=== PATIENT | female | born 1960 | race Caucasian/White ===

== ENCOUNTER → 2018-01-08 | Outpatient (CLI) | payer OTHER ==
[~2018-01-08] MED LIST: ACE3 PO; APRE80CA PO; ASPI81TA94 PO; CA C1TAB85 PO; CEPH500C24 PO; CETI-176 PO; FISHOIL PO; GLUC100026 PO; GLUC500C29 PO; IBU600 PO; LOR1 PO; MULT1TAB54 PO; MULTIVIT PO; NAPR220C12 PO; NEXIUM PO; OXYC-489 PO; PER PO; PROC-35 PO; RANI150C17 PO; VIT-7 PO; ZYRTEC PO
[2018-01-08 13:28] LABS: PLATELET COUNT, AUTOMATED 213 K/uL (150-450)
== END ==
LOC: LAB 13:05
PROVIDERS: ATTEND Internal Medicine Hematology
DX: C50.919 Malignant neoplasm of unspecified site of unspecified female breast (principal)
CPT/HCPCS: 36415; 82040; 82247; 82310; 82374; 82378; 82435; 82565; 82947; 84075; 84132; 84155; 84295; 84450; 84460; 84520; 85025; 86300

== ENCOUNTER → 2018-01-31 | Outpatient (CLI) | payer OTHER ==
--- NOTE | 2018-02-01 13:30 | RADIOLOGY IMAGING REPORT ---
FACILITY: [facility] PATIENT NAME: COURTNEY MORGAN : [id number] MR: [id number] V: [id number] EXAM DATE: [id number] ORDERING PHYSICIAN: OLAF MILLER TECHNOLOGIST: Sylvia Jacobson PROCEDURE: MAMMOGRAM SCREENING LEFT UNILATERAL WITH CAD ASSISTED INTERPRETATION & 3D TOMOSYNTHESIS COMPARISON: Prior mammograms 05/05/16, 01/28/15. INDICATIONS: screening FINDINGS: A small amount of fibroglandular tissue is seen throughout the breasts. The parenchymal pattern has remained stable allowing for difference in mammographic technique & patient positioning. There is no evidence of malignant appearing mass, malignant appearing calcifications or other secondary sign of malignancy in the Left breast. DIAGNOSTIC CATEGORY 1--NEGATIVE. RECOMMENDATIONS: ROUTINE MAMMOGRAM AND CLINICAL EVALUATION. IMPRESSION: BIRADS 1: Negative. No significant abnormality of the Left breast is seen. Dictated by: Anna Pederson M.D. on 01/31/2018 at 16:56 Transcribed by: EMELIA on 02/01/2018 at 8:59 Approved by: Anna Pederson M.D. on 02/01/2018 at 13:28 [facility]
== END ==
LOC: MAMO 02:44
PROVIDERS: ATTEND Internal Medicine Hematology
DX: Z12.31 Encounter for screening mammogram for malignant neoplasm of breast (principal); Z80.3 Family history of malignant neoplasm of breast; Z85.3 Personal history of malignant neoplasm of breast
CPT/HCPCS: 77063; 77067

== ENCOUNTER 2018-02-02 09:58 | Outpatient (RCR) | payer OTHER ==
[2018-02-02 10:07] VITALS: BP 114/80
--- NOTE | 2018-02-02 14:54 | EL-TAR[facility] ONCOLOGY NOTE ---
EVENT DATE: February 02, 2018 DIAGNOSIS Clinical stage IIIA ([id number]) right breast cancer. CHIEF COMPLAINT The patient is here today for followup of her right breast cancer and right upper extremity lymphedema. ONCOLOGY HISTORY Patient is a 57-year-old female who presented with a palpable lump in the right breast in May 2009. On May 28, 2009, patient had a diagnostic mammogram which revealed a 2.9 cm mass at the 12 o'clock position. Followup ultrasonogram done the same day revealed a 3 cm hypoechoic mass with acoustic shadowing. 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 HER-2/rd was 2+ by immunohistochemistry and positive by FISH. Ki-67 was 88% positive. On June 17, 2009, patient had right axillary ultrasonographic-guided fine-needle aspiration biopsy which came back positive for metastasis. On June 24, 2009, patient had a PET/CT scan which showed increased activity in the large soft tissue mass of the right breast along with hypermetabolic right axillary lymph node. There was no evidence of systemic metastasis by PET/CT scan. Vitamin D level was 28 which is borderline. CA was 1.3, and CA 27.29 was 27, and both were well within normal range. Patient was started on neoadjuvant chemotherapy with AC regimen in dose dense on June 29, 2009, and patient received four courses of dose-dense AC, completed on August 13, 2009. Patient after that completed four cycles of dose-dense Taxol between August 27, 2009, through October 15, 2009. On October 29, 2009, patient had a lumpectomy on the right side with sentinel lymph node biopsy, followed by axillary lymph node dissection. Her lumpectomy specimen came back positive for invasive lobular carcinoma extending to less than 1 mm of the inferior and deep margins. There was positive lymphovascular invasion, with additional re-excision of the medial superior margin. It again came back positive for invasive cancer. Two out of five sentinel lymph nodes came back positive for metastasis, while three out of nine lymph nodes from the right axillary lymph node dissection came back positive for metastasis, so a total of five out of 14 lymph nodes were positive for metastasis, one with macrometastasis, two with micrometastasis, and two with nanometastasis. On November 12, 2009, the patient had a right mastectomy, and the pathology was negative for malignancy. Patient started adjuvant hormonal therapy with Femara 2.5 mg on February 25, 2010. The patient completed five years of adjuvant hormonal therapy with Femara in late January 2015. HISTORY OF PRESENT ILLNESS Patient is here today for followup of her right breast cancer and right upper extremity lymphedema. She is doing fine currently. She has some cough with expectoration. She has pain in her knees. She bruises easily, but other than that she is really doing very well. PAST MEDICAL HISTORY 1. Right breast cancer. 2. SEASONAL ALLERGIES. PAST SURGICAL HISTORY 1. Broken right forearm with plate in place, done on February 27, 2001. 2. Torn meniscus of the right knee. 3. Parathyroidectomy done in May 2011. 4. Right knee surgery March 2011. 5. Right lumpectomy followed by sentinel lymph node biopsy and axillary lymph node dissection done on October 29, 2009. 6. Right mastectomy done on November 12. SOCIAL HISTORY Patient is . She has four children, three sons and one daughter. She is a paraprofessional and teacher. She drinks about eight to 12 drinks per year. Denies any abuse of tobacco or drugs. FAMILY HISTORY Mother had breast cancer at the age of 56. Grandmother had breast cancer at the age of 80. No ovarian cancer in the family. She had a cousin who of cancer, but she does not know exactly the type. CURRENT MEDICATIONS 1. Zyrtec 10 mg daily. 2. Femara 2.5 mg daily. 3. Caltrate 630 mg daily. 4. Glucosamine/chondroitin sulfate two tablets daily. 5. Vitamin D 1000 mg daily. 6. Fish oil 1000 mg daily. 7. Multivitamins once daily. 8. Ranitidine 150 mg twice daily. ALLERGIES No known drug allergies. REVIEW OF SYSTEMS CONSTITUTIONAL: No appetite or weight change. No fever, chills, or sweating. No recent infection. HEENT: Ears: No tinnitus or hearing problem. Nose: No nasal discharge or epistaxis. Throat: No sore throat or mouth ulcers. Eyes: No diplopia or visual changes. RESPIRATORY: She has cough with expectoration. CARDIOVASCULAR: Her right upper quadrant lymphedema is getting better with the pump for the treatment of her lymphedema. GASTROINTESTINAL: No nausea or vomiting. No diarrhea or constipation. No change in bowel movements. No heartburn or swallowing difficulties. No abdominal pain. No jaundice. No hematemesis, melena or rectal bleeding. GENITOURINARY: No hematuria or dysuria. MUSCULOSKELETAL: She has pain in her knees. NEUROLOGICAL: No tingling or numbness in the hands or feet. No headaches or convulsions. HEMATOLOGIC/LYMPHATIC: She bruises easily. No weakness or fatigue. No enlarged lymph nodes. SKIN: No skin rash or lumps. PSYCHIATRIC: No anxiety or depression. PHYSICAL EXAMINATION VITAL SIGNS: Blood pressure 114/80, pulse 80 per minute, respirations 18 per minute, temperature 96.6, pulse ox 93% on room air. GENERAL: Looks stable. Well developed, well nourished, and in no acute distress. HEENT: Head: Atraumatic. No sinus tenderness to palpation. Eyes: No icterus or conjunctivitis. Mouth and throat: No oral thrush or mucositis. NECK: Supple. No cervical or supraclavicular lymphadenopathy. LUNGS: Clear to auscultation and percussion bilaterally. HEART: Regular rate and rhythm. No gallops, murmurs, clicks, or rubs. ABDOMEN: Soft and lax. No tenderness. No hepatosplenomegaly. No masses. EXTREMITIES: The right upper extremity lymphedema is noted, and measurements are described in diagnostic data. LYMPHATICS: No peripheral lymphadenopathy. NEUROLOGICAL: Conscious, alert, and oriented times three. No focal motor or sensory deficits. PSYCHIATRIC: Mood and affect appear normal. SKIN: No skin rash, bruise, or purpuric eruption. DIAGNOSTIC DATA Mammogram done on the January did not show any masses. Chem panel is totally normal. CBC showed white count 7.9, hemoglobin 12.3, hematocrit 35.9, platelets 213,000. CA15-3 is 15 which is down from 22. CA 27.29 is 13 which is down from 23.8. CEA is 2.3, down from 3. ASSESSMENT 1. Stage IIIA ([id number]) right breast cancer, status post neoadjuvant chemotherapy with four cycles of Adriamycin and cisplatin in dose dense given between June 29, 2009, through August 13, 2009, followed by Herceptin and Taxol dose dense received between August 27, 2009, through October 15, 2009. After that, patient had surgery with lumpectomy on October 31, 2009, followed by mastectomy on November 12, 2009, for residual disease. Final pathology was positive for ER/NY and HER-2/rd-positive breast cancer with five out of 14 lymph nodes positive for metastasis. Following surgery, patient received adjuvant radiation therapy, and she started adjuvant hormonal therapy on February 25, 2010. She completed five years of adjuvant hormonal therapy with Femara in late January 2015. She finished her adjuvant Herceptin therapy for a year in August 2010. She currently in complete remission. Her mammogram of the left breast is benign. Tumor markers with CA15-3 is 15, and CA 27.29 is 13, while CEA is 2.8, all within the normal range. I am planning to continue followup. I will see her again in a year with CBC, chemistry panel, CA 27.29, CA15-3, CEA, and a mammogram of the left breast at that time. 2. Right upper extremity lymphedema, stable currently. 3. Osteopenia of the lumbar spine, improved with Boniva. PLAN 1. Continue followup. 2. Patient to return in a year with CBC, chem panel, CEA, CA 27.29, CA15-3. 3. Patient is to contact us for any new concern or complaints. MILESD
== END 2018-03-14 08:51 | disposition home or self-care (01) ==
LOC: ONC 09:58
PROVIDERS: ATTEND Internal Medicine Hematology
DX: Z85.3 Personal history of malignant neoplasm of breast (principal); I89.0 Lymphedema, not elsewhere classified; M85.88 Other specified disorders of bone density and structure, other site; Z79.899 Other long term (current) drug therapy
CPT/HCPCS: 99212

== ENCOUNTER 2018-08-27 02:17 | Inpatient (IN) | payer OTHER ==
--- NOTE | 2018-07-31 08:25 | EKG ---
FACILITY: [facility] PATIENT NAME: COURTNEY MORGAN : [id number] MR: [id number] V: [id number] EXAM DATE: ORDERING PHYSICIAN: AVI AHMADI TECHNOLOGIST: KAREN Gallegos Reason : PRE-OP KNEE Blood Pressure : / mmHG Vent. Rate : 062 BPM Atrial Rate : 062 BPM P-R Int : 162 ms QRS Dur : 082 ms QT Int : 426 ms P-R-T Axes : 068 018 067 degrees QTc Int : 432 ms Normal sinus rhythm Low voltage QRS Borderline ECG No previous ECGs available Confirmed by Krishna Perez ([id number]) on 07/31/2018 9:43:38 PM Referred By: DAIANA Confirmed By:Krishna Sofia
[2018-07-31 08:27] LABS: PLATELET COUNT, AUTOMATED 240 K/uL (150-450)
[2018-08-26 15:26] LABS: INR 0.93
[~2018-08-27] VITALS: Ht 165.1 cm; Wt 99.4 kg
[2018-08-27] VITALS (14 sets, daily range): BP systolic 100–123; BP diastolic 41–81
[2018-08-27] MEDS ORDERED: MIDAZOLAM 2 MG/2 ML VIAL IVP PRN (08:55)
[2018-08-27] MEDS ORDERED: ROPIVACAINE/EPI/CLONIDINE/KET 50 ML SYRINGE INJ ONE (08:55)
[2018-08-27] MEDS ORDERED: ceFAZolin(*) 2GM/D5W 50ML 50 ML IVPB ONE (08:55)
[2018-08-27] MEDS ORDERED: TRANEXAMIC AC 1000 MG/10ML SDV 1,000 MG in DEXTROSE 5% 50 ML BAG 50 ML IV ONE (08:55)
[2018-08-27] MEDS ORDERED: CELECOXIB 200 MG CAP PO ONE (08:55)
[2018-08-27] MEDS ORDERED: ROPIVACAINE 0.2% 400 MG/200ML 250 ML CONINFUS ONE (08:55)
[2018-08-27] MEDS ORDERED: NORMOSOL R SOLN(*) 1000 ML BAG 1,000 ML IV PRN ×2 (08:55→15:30)
[2018-08-27] MEDS ORDERED: PREGABALIN 150 MG CAPSULE PO ONE (08:55)
[2018-08-27] MEDS ORDERED: ACETAMINOPHEN 500 MG TAB PO ONE (08:55)
[2018-08-27] MEDS ORDERED: LIDOCAINE/SOD BICARB 8.4% SYR ID ONE (08:55)
[2018-08-27] MEDS ORDERED: ROPIVACAINE 0.5% 20 ML VIAL ONE (10:03)
[2018-08-27] MEDS ORDERED: DEXAMETHASONE SOD PHOS 10MG/ML ONE (10:04)
[2018-08-27] MEDS ORDERED: DEXAMETHASONE SOD 4 MG/ML VIAL ONE (10:09)
[2018-08-27] MEDS ORDERED: fentaNYL CITR 250 MCG/5 ML AMP ONE (10:10)
[2018-08-27] MEDS ORDERED: PROPOFOL EMUL(*) 10MG/ML 20 ML 20 ML ONE (10:11)
[2018-08-27] MEDS ORDERED: LIDOCAINE 2% IV 100 MG/5ML SYR ONE (10:11)
[2018-08-27] MEDS ORDERED: KETAMINE HCL 200 MG/20 ML MDV ONE ×2 (12:39→12:58)
[2018-08-27] MEDS ORDERED: ONDANSETRON 4 MG/2 ML VIAL ONE (12:39)
[2018-08-27] MEDS ORDERED: fentaNYL CITR 100 MCG/2 ML AMP ONE ×2 (12:48→13:51)
--- NOTE | 2018-08-27 14:28 | RADIOLOGY IMAGING REPORT ---
[place] [facility] [place] Hemalatha Oliva : 1960 MR: [id number] V: [id number] EXAM DATE: ORDERING PHYSICIAN: AVI AHMADI TECHNOLOGIST: Location: [facility] [place] Patient: Hemalatha Oliva : 1960 Visit/Account:[id number] Date of Sevice: 08/27/2018 EXAMINATION: Right knee, 2 views 08/27/2018 1:41 PM HISTORY: S/P TOTAL RIGHT KNEE ARTHROPLASTY COMPARISON: Right tibia and fibula 12/12/2016 FINDINGS: Patient is status post right knee replacement. Prosthetic components appear to articulate appropriately. There is postsurgical soft tissue gas. IMPRESSION: Status post right TKA. Report Dictated By: Varun Crowley MD at 08/27/2018 2:22 PM Report E-Signed By: Varun Crowley MD at 08/27/2018 2:24 PM WSN:COOPER
--- NOTE | 2018-08-27 15:15 | Hospitalist Consultation ---
History of Present Illness Requesting Physician Dr. Jenkins Reason for Consult Medical Management Chief Complaint s/p right knee replacement History of Present Illness She was admitted s/p right knee replacement. It is reported the surgery went well and without complication. History Problems: (1) GERD (gastroesophageal reflux disease) Status: Chronic (2) Sleep related hypoxia Status: Chronic Home Meds Reported Medications Cetirizine Hcl (ZYRTEC) Unknown Strength Tablet, PO QDAY, TAB 10/26/16 Naproxen Sodium (ALEVE) 220 Mg Capsule, 220 MG PO BID, CAPSULE 01/28/16 Multivitamin (MULTI-VITAMIN DAILY) 1 Each Tablet, 1 EACH PO 01/28/16 Glucosamine Sulfate 2KCL (GLUCOSAMINE) 1,000 Mg Tablet, 1000 MG PO 01/28/16 Ranitidine Hcl (RANITIDINE HCL) 150 Mg Capsule, 300 MG PO DAILY, CAPSULE 08/22/14 Ca Cmb No.1/Vit D3/B-6/Fa/B12 (Vitamin D3 1,000 Unit Tablet) 1 Each Tablet, 1 EACH PO DAILY, 0 Refills 01/27/10 Discontinued Reported Medications Aspirin (ASPIRIN) 81 Mg Tab.chew, 81 MG PO QDAY, TAB.CHEW 01/28/16 Allergies: Coded Allergies: No Known Allergies (Verified Allergy, Mild, 06/29/09) Patient History: FH: Alzheimers disease FATHER FH: breast cancer MOTHER Hx Smoking: No Smoking Status: Never Smoker Caffeine Intake: Soda Caffeine/Cups Per Day: OCC Hx Alcohol Use: No Hx Substance Use Disorder: No Social Drug Use: Never Review of Systems All Systems Reviewed/Normal: Yes, Except as Noted Exam Vital Signs Vital Signs Date Time Temp Pulse Resp B/P (MAP) Pulse Ox O2 Delivery O2 Flow Rate FiO2 08/27/18 14:53 96.3 80 12 117/66 (83) 98 Nasal Cannula 2.0 General Appearance: Alert, Awake, No Acute Distress, Afebrile Neuro: No Gross deficits Cardiovascular: Regular Rate and Rhythm Respiratory: No Respiratory Distress, Clear to Auscultation GI: Abd Soft and Non-Tender Psych: Alert & Oriented X3, Appropriate Mood & Affect Assessment and Plan Problems: (1) Status post right knee replacement Status: Acute Assessment & Plan: Followed by Dr. Jenkins. She will be placed on Aspirin 325mg for DVT prophylaxis. (2) GERD (gastroesophageal reflux disease) Status: Chronic Assessment & Plan: She is on chronic treatment with Ranitidine. (3) Sleep related hypoxia Status: Chronic Assessment & Plan: She is on chronic treatment with oxygen 2Liters at night. She does not require CPAP. Venous Thromboembolism Antithrombotics Is Pt On Any Antithrombotics?: No FAITH POZO Aug 27, 2018 15:15
[2018-08-27] MEDS ORDERED: oxyCODONE HCL 5 MG CAP PO PRN (15:30)
[2018-08-27] MEDS ORDERED: MAGNESIUM HYDROXIDE* 30ML UDCP PO PRN (15:30)
[2018-08-27] MEDS ORDERED: ONDANSETRON 4 MG/2 ML VIAL IVP PRN (15:30)
[2018-08-27] MEDS ORDERED: ZOLPIDEM TARTRATE 5 MG TAB PO PRN (15:30)
[2018-08-27] MEDS ORDERED: PROMETHAZINE 25 MG/ML 1 ML AMP IVP PRN (15:30)
[2018-08-27] MEDS ORDERED: MORPHINE 4 MG/ML SDV IVP PRN (15:30)
[2018-08-27] MEDS ORDERED: KETOROLAC TROM 10MG TAB PO PRN (15:30)
[2018-08-27] MEDS ORDERED: FLUSH 10 ML SYR IVP PRN (15:30)
[2018-08-27] MEDS ORDERED: BISACODYL 10 MG SUPP PR PRN (15:30)
[2018-08-27] MEDS: ACETAMINOPHEN 500 MG TAB PO SCH (16:48)
--- NOTE | 2018-08-27 18:20 | NUR ---
Physical Therapy Impression PT eval completed. Pt tolerated side stepping along edge of bed but notes decreased sensation and motor control, with Min assist required to ensure safety. Pt completed [id number] to bedside commode for voiding and returned to bed with PT assist. Physical Therapy Goals 1. Pt to be modified indep with bed mobility and supine<>sit trnsfrs 2. Pt to be modified indep with sit to/from stand transfers 3. Pt to ambulate x 150' with FWW and SBA/Modified indep 4. Pt to be SBA/CGA for up/down 4 steps with rail. Patient's Goals
[2018-08-27] MEDS ORDERED: NS(*) 0.9% 500 ML BAG 500 ML ONE (19:41)
[2018-08-27] MEDS: ceFAZolin(*) 2GM/D5W 50ML 50 ML IVPB SCH (19:43)
[2018-08-28] MEDS: ACETAMINOPHEN 500 MG TAB PO SCH ×3 (00:26→16:35)
[2018-08-28 02:32] VITALS: BP 96/57
[2018-08-28] MEDS: ceFAZolin(*) 2GM/D5W 50ML 50 ML IVPB SCH ×2 (03:31→12:19)
--- NOTE | 2018-08-28 03:37 | OPERATIVE REPORT 1 ---
EVENT DATE: August 27, 2018 SURGEON: Cornelius Jenkins MD ANESTHESIOLOGIST: Abhilash Retana MD ANESTHESIA: Right indwelling adductor block followed by general anesthesia. TOP LIFT CUTTER: ELIZABETH Whitehead PREOPERATIVE DIAGNOSIS Right knee degenerative joint disease with flexion contracture. POSTOPERATIVE DIAGNOSIS Right knee degenerative joint disease with flexion contracture. PROCEDURE PERFORMED Right total knee arthroplasty. IMPLANTS MicroPort Medial-Pivot CS system with a 4 femur, 4 tibia, 14 mm CS insert, 8 x 35 symmetric patella, femur cut 6 degrees valgus, 10 mm. Utilized two packages of DonJoy [place] Blue cement and our ZipLine Wound Closure System. We also utilized our standard 50 mL of Toradol/ropivacaine cocktail. SPECIMENS None. COMPLICATIONS None. BLOOD LOSS Less than 200 mL. DESCRIPTION OF PROCEDURE Patient received appropriate preoperative antibiotic, was brought to the OR, where Dr. Retana performed adductor block followed by general anesthesia. A right thigh tourniquet was placed but not utilized. Right thigh and right lower extremity were prepped and draped in the usual sterile fashion. We made a midline incision, followed by a medial parapatellar arthrotomy. We noted significant osteophytic reaction around the medial and lateral tibial plateau, medial and lateral femoral condyles and trochlea. Patella showed severe erosion laterally and significant osteophytic changes. It should be noted that bone quality was considered fair to poor. After the arthrotomy, we dissected subperiosteally on the medial tibial plateau to the level of the semimembranosus insertion, and osteophytes were removed by rongeur. The fat pad was excised. The patella was removed of osteophytes by rongeur. The patella was then released, everted, and the knee brought up into hyperflexion. The notch showed significant osteophytic reaction; these were removed with rongeur. ACL and PCL were released by subperiosteal dissection. It should also be noted that when we were working on the patella, we noted that the patellar tendon, though intact, was mildly attenuated. Remaining articular cartilage was removed from the distal femoral condyles by sagittal saw. A step- cut drill was utilized to broach the canal. We placed our intramedullary femoral guide, and the cutting block was set up at 6 degrees valgus, 10 mm, and with care taken to protect the soft tissue, the distal cut was made. A 3-degree external rotation guide and sizer were then positioned, referencing off the anterior flange, the epicondyles and posterior condyles, and the femur was sized to a #4, and 3-degree external rotation was drilled. A 4-in-1 cutting block was positioned, followed by Z-retractors, and four cuts made. Tibia was brought anteriorly onto the femur with appropriate retractors. Step-cut drill was utilized to broach the tibial canal. We placed our intramedullary tibial guide. We referenced for a 10 mm cut off the least-involved lateral tibial plateau and set up for rotation. Block was pinned into place, and with care taken to protect the soft tissues of the retractors, we made our tibial cut. Osteophytes were removed posterolaterally and laterally with rongeur. The tibia was sized to a #4. A curved osteotome was utilized to remove posterior osteophytes after removal of the stump of the ACL and PCL, medial and lateral meniscus by Dalia. A Cortes elevator was utilized to elevate the capsule. We then placed our trial tibial base plate, referencing 3 degrees rotation, and pinned this in place. Starting with a 12, we moved up to a 14 mm insert. We then placed our femur. We achieved full extension now, stability to varus and valgus stress, and 90 degrees anterior drawer was solid. We then placed the knee at full extension. The lateral aspect of the patella was 10 mm in depth. We free-handed this to the deepest depth. Medially it was now 14-15 mm; in the lateral aspect, a small area was 10 mm, and far laterally it was 8 mm. We then placed our peg hole guide inferiorly and medially. We drilled our peg holes, and this accepted 35 x 8 symmetric patella. The knee was flexed, the peg holes drilled for the femur, and a bone cut for the trochlear chip, which was then placed. Now we had full extension once again, flexion limited by body habitus to about 120 degrees, stability to varus/valgus stress, and patella tracked well. Patella was once again everted, button removed, as well as the femur and tibial insert. Appropriate retractors were placed, and we set up our tibial tower for our keel, which was cut, reamed and punched. The instrumentation was removed. Bone plug was placed in the distal femur. The knee was brought into full extension. I injected 10 mL of our cocktail in the posterior capsule, and we copiously irrigated by pulsed lavage. We mixed two packages of DonJoy [place] Blue cement. Once the surfaces were cleaned and the knee was brought up in appropriate position, we cemented the tibia into place, followed by our 14 mm insert, then our femur. We removed excess cement. The knee was brought into full extension with axial compression while we cemented the patella. After 11-1/2 minutes, the cement had secured, and again we had the aforementioned range of motion and stability. While the cement was curing, I injected the remaining cocktail into the distal quad mechanism. I then irrigated once again, and at 30 degrees, we closed the arthrotomy with #2 Vicryl followed by 2-0 Vicryl for subcutaneous tissues, and at 45 degrees, the ZipLine Wound Closure System was placed. Dressing was applied. The patient was extubated and taken to Recovery in stable condition. Hospitalist will consult for medical management and anticoagulation, PT for rehab. ADRIAN
[2018-08-28 07:13] VITALS: BP 103/65
[2018-08-28] MEDS: CETIRIZINE HCL 10 MG TAB PO SCH (08:54)
[2018-08-28] MEDS: RANITIDINE HCL 150 MG TAB PO SCH (08:54)
[2018-08-28] MEDS: ASPIRIN 325 MG TAB PO SCH (08:54)
--- NOTE | 2018-08-28 10:03 | Hospitalist Progress Note ---
Subjective Progress Notes Subjective She was admitted s/p knee replacement. She has no complaints this morning. She had no acute events overnight. Patient Complains of: Cardiovascular: No: Chest Pain Respiratory: No: Shortness of Breath Physical Exam Vital Signs Date Time Temp Pulse Resp B/P (MAP) Pulse Ox O2 Delivery O2 Flow Rate FiO2 08/28/18 07:17 94 Nasal Cannula 1.5 08/28/18 07:13 97.9 74 18 103/65 (78) Intake and Output 08/28/18 00:59 Intake Total 1945 ml Output Total 200 ml Balance 1745 ml Intake Oral 480 ml IV Total 1465 ml Output Estimated Blood Loss 200 ml # Voids 2 General Appearance: Alert, Awake, No Acute Distress, Afebrile Neuro: No Gross deficits Cardiovascular: Regular Rate and Rhythm Respiratory: No Respiratory Distress, Clear to Auscultation GI: Soft and Non-Tender Psych: Alert & Oriented X3, Appropriate Mood & Affect Assessment and Plan Problems: (1) Status post right knee replacement Status: Acute Assessment & Plan: Followed by Dr. Jenkins. She will be placed on Aspirin 325mg for DVT prophylaxis. (2) GERD (gastroesophageal reflux disease) Status: Chronic Assessment & Plan: She is on chronic treatment with Ranitidine. (3) Sleep related hypoxia Status: Chronic Assessment & Plan: She is on chronic treatment with oxygen 2Liters at night. She does not require CPAP. Exam Sepsis Risk: No Definite Risk FAITH POZOP Aug 28, 2018 10:03
--- NOTE | 2018-08-28 10:35 | NUR ---
Physical Therapy Impression Pt progressing well with mobility, however, BP is somewhat low. Pt denies any symptoms related to this and is able to maneuver well with no dizziness reported. Pt tolerated CGA for transfers and ambulation and W/C follow performed due to low BP. Pt did not, however, require a sitting rest break and requested to remain up in the recliner for sponge bath with assist of HIMS CODER at end of PT session. Physical Therapy Goals 1. Pt to be modified indep with bed mobility and supine<>sit trnsfrs 2. Pt to be modified indep with sit to/from stand transfers 3. Pt to ambulate x 150' with FWW and SBA/Modified indep 4. Pt to be SBA/CGA for up/down 4 steps with rail. Patient's Goals
[2018-08-28 10:59] VITALS: BP 104/60
[2018-08-28 13:41] VITALS: Ht 165.1 cm; Wt 99.4 kg
[2018-08-28 14:51] VITALS: BP 102/63
[2018-08-28] MEDS: traMADol 50 MG TAB PO PRN (14:56)
--- NOTE | 2018-08-28 17:23 | NUR ---
Physical Therapy Impression PT goals met with afternoon visit. Pt demos improved tolerance for household distance ambulation and completed up/down platform step x 2 with SBA/CGA and walker to simulate entry to home. Pt/CG demo understanding with CPM progression of flexion as tolerated and are scheduled for out pt therapy at [facility]. Physical Therapy Goals 1. Pt to be modified indep with bed mobility and supine<>sit trnsfrs 2. Pt to be modified indep with sit to/from stand transfers 3. Pt to ambulate x 150' with FWW and SBA/Modified indep 4. Pt to be SBA/CGA for up/down 4 steps with rail. Patient's Goals
[2018-08-28 18:44] VITALS: BP 102/61
[2018-08-28 22:58] VITALS: BP 96/51
[2018-08-29] MEDS: ACETAMINOPHEN 500 MG TAB PO SCH ×2 (01:08→09:10)
[2018-08-29 02:04] VITALS: BP 100/65
[2018-08-29] MEDS ORDERED: ASPI-757 PO (07:50)
[2018-08-29] MEDS ORDERED: KET10 PO ×2 (08:36→08:37)
[2018-08-29] MEDS ORDERED: TRAM-420 PO (08:40)
[2018-08-29] MEDS: CETIRIZINE HCL 10 MG TAB PO SCH (09:10)
[2018-08-29] MEDS: ASPIRIN 325 MG TAB PO SCH (09:10)
[2018-08-29] MEDS: RANITIDINE HCL 150 MG TAB PO SCH (09:11)
[2018-08-29] MEDS: traMADol 50 MG TAB PO PRN (09:11)
--- NOTE | 2018-08-29 10:41 | Hospitalist Progress Note ---
Subjective Progress Notes Subjective She has no complaints this morning. She had no acute events overnight. Patient Complains of: Cardiovascular: No: Chest Pain Respiratory: No: Shortness of Breath Physical Exam Vital Signs Date Time Temp Pulse Resp B/P (MAP) Pulse Ox O2 Delivery O2 Flow Rate FiO2 08/29/18 02:04 99.1 94 16 100/65 (77) 97 Nasal Cannula 2.0 Intake and Output 08/29/18 07:00 Intake Total 1128 ml Balance 1128 ml Intake Oral 1062 ml IV Total 66 ml # Voids 5 General Appearance: Alert, Awake, No Acute Distress, Afebrile Neuro: No Gross deficits Cardiovascular: Regular Rate and Rhythm Respiratory: No Respiratory Distress, Clear to Auscultation GI: Soft and Non-Tender Psych: Alert & Oriented X3, Appropriate Mood & Affect Assessment and Plan Problems: (1) Status post right knee replacement Status: Acute Assessment & Plan: Followed by Dr. Jenkins. She will be placed on Aspirin 325mg for DVT prophylaxis. (2) GERD (gastroesophageal reflux disease) Status: Chronic Assessment & Plan: She is on chronic treatment with Ranitidine. (3) Sleep related hypoxia Status: Chronic Assessment & Plan: She is on chronic treatment with oxygen 2Liters at night. She does not require CPAP. Exam Sepsis Risk: No Definite Risk FAITH POZO Aug 29, 2018 10:41
[2018-08-29 11:26] VITALS: BP 102/52
== END 2018-08-29 14:30 | disposition home or self-care (01) | DRG 470 ==
LOC: OR 02:17 → MED 14:50 → OBSVTOIN 14:50 → INTOOBSV 14:50
PROVIDERS: ADMIT Orthopaedic Surgery; ATTEND Orthopaedic Surgery
PROC: 0SRC0J9 Replacement of Right Knee Joint with Synthetic Substitute, Cemented, Open Approach (ICD-10-PCS; principal; 2018-08-27 11:49)
DX: M17.0 Bilateral primary osteoarthritis of knee (principal); M24.561 Contracture, right knee; K21.9 Gastro-esophageal reflux disease without esophagitis; G47.33 Obstructive sleep apnea (adult) (pediatric); E66.9 Obesity, unspecified; Z68.36 Body mass index [BMI] 36.0-36.9, adult; Z85.3 Personal history of malignant neoplasm of breast
CPT/HCPCS: 36415; 76942; 81001; 82040; 82247; 82310; 82374; 82435; 82565; 82947; 84075; 84132; 84155; 84295; 84450; 84460; 84520; 85025; 85610; 86850; 86900; 86901; 93005; 97161; C1713; C1776; J0690; J1100; J2001; J2250; J2405; J2704; J2795; J3010; J3490; J7040; J7060

== ENCOUNTER → 2018-09-11 | Outpatient (CLI) | payer OTHER ==
[2018-08-28 13:41] VITALS: BMI 36.4
[~2018-09-11] MED LIST changes: +ASPI-757 PO; +KET10 PO; +TRAM-420 PO
--- NOTE | 2018-09-11 13:37 | RADIOLOGY IMAGING REPORT ---
FACILITY: [facility] PATIENT NAME: Hemalatha Oliva : 1960 MR: [id number] V: [id number] EXAM DATE: ORDERING PHYSICIAN: AVI AHMADI TECHNOLOGIST: Location: [facility] Patient: Hemalatha Oliva : 1960 Visit/Account:[id number] Date of Sevice: 09/11/2018 US VENOUS LOWER EXT RT HISTORY: Right total knee arthroplasty two weeks ago. Pain and swelling. COMPARISON: None. FINDINGS: Duplex sonographic images with segmental compressibility and evaluation respiratory phasicity reveals no evidence of DVT. No mass or fluid collection. IMPRESSION: Negative right lower extremity DVT ultrasound Report Dictated By: Jordan Natarajan MD at 09/11/2018 1:33 PM Report E-Signed By: Jordan Natarajan MD at 09/11/2018 1:34 PM WSN:[email or web address]
== END ==
LOC: US 10:18
PROVIDERS: ATTEND Orthopaedic Surgery
DX: M79.661 Pain in right lower leg (principal); R22.41 Localized swelling, mass and lump, right lower limb; Z98.890 Other specified postprocedural states

== ENCOUNTER → 2019-01-04 | Outpatient (CLI) | payer OTHER ==
[2018-08-28 13:41] VITALS: BMI 36.4
[~2019-01-04] MED LIST changes: +CALC500T6 PO
== END ==
LOC: LAB 09:45
PROVIDERS: ATTEND Family Medicine
DX: E78.5 Hyperlipidemia, unspecified (principal)
CPT/HCPCS: 36415; 82465; 83718; 84478

== ENCOUNTER → 2019-01-04 | Outpatient (CLI) | payer OTHER ==
[2018-08-28 13:41] VITALS: BMI 36.4
[2019-01-04 11:08] LABS: PLATELET COUNT, AUTOMATED 263 K/uL (150-450)
== END ==
LOC: LAB 09:41
PROVIDERS: ATTEND Internal Medicine Hematology
DX: C50.919 Malignant neoplasm of unspecified site of unspecified female breast (principal)
CPT/HCPCS: 82040; 82247; 82310; 82374; 82378; 82435; 82565; 82947; 84075; 84132; 84155; 84295; 84450; 84460; 84520; 85025; 86300

== ENCOUNTER 2019-01-14 07:48 | Inpatient (IN) | payer OTHER ==
[2019-01-13 15:40] LABS: INR 0.92
[~2019-01-14] VITALS: Ht 165.1 cm; Wt 101.7 kg
[2019-01-14] VITALS (14 sets, daily range): BP systolic 104–133; BP diastolic 49–82
[2019-01-14] MEDS ORDERED: PREGABALIN 150 MG CAPSULE PO ONE (11:15)
[2019-01-14] MEDS ORDERED: ROPIVACAINE CONINFUS ONE (11:15)
[2019-01-14] MEDS ORDERED: MIDAZOLAM 2 MG/2 ML VIAL IVP PRN (11:15)
[2019-01-14] MEDS ORDERED: LIDOCAINE/SOD BICARB 8.4% SYR ID ONE (11:15)
[2019-01-14] MEDS ORDERED: ceFAZolin(*) 2GM/D5W 50ML 50 ML IVPB ONE (11:15)
[2019-01-14] MEDS ORDERED: CELECOXIB 200 MG CAP PO ONE (11:15)
[2019-01-14] MEDS ORDERED: ACETAMINOPHEN 500 MG TAB PO ONE (11:15)
[2019-01-14] MEDS ORDERED: ROPIVACAINE/EPI/CLONIDINE/KET 50 ML SYRINGE INJ ONE (11:15)
[2019-01-14] MEDS ORDERED: TRANEXAMIC AC 1000 MG/10ML SDV 1,000 MG in DEXTROSE 5% 50 ML BAG 50 ML IV ONE (11:15)
[2019-01-14] MEDS ORDERED: NORMOSOL R SOLN(*) 1000 ML BAG 1,000 ML IV PRN ×2 (11:15→12:20)
[2019-01-14] MEDS ORDERED: fentaNYL CITR 100 MCG/2 ML AMP ONE (12:00)
[2019-01-14] MEDS ORDERED: BISACODYL 10 MG SUPP PR PRN (12:20)
[2019-01-14] MEDS ORDERED: traMADol 50 MG TAB PO PRN (12:20)
[2019-01-14] MEDS ORDERED: ZOLPIDEM TARTRATE 5 MG TAB PO PRN (12:20)
[2019-01-14] MEDS ORDERED: MORPHINE 4 MG/ML SDV IVP PRN (12:20)
[2019-01-14] MEDS ORDERED: MAGNESIUM HYDROXIDE* 30ML UDCP PO PRN (12:20)
[2019-01-14] MEDS ORDERED: oxyCODONE HCL 5 MG CAP PO PRN (12:20)
[2019-01-14] MEDS ORDERED: ONDANSETRON 4 MG/2 ML VIAL IVP PRN (12:20)
[2019-01-14] MEDS ORDERED: PROMETHAZINE 25 MG/ML 1 ML AMP IVP PRN (12:20)
[2019-01-14] MEDS ORDERED: FLUSH 10 ML SYR IVP PRN (12:20)
--- NOTE | 2019-01-14 13:09 | RADIOLOGY IMAGING REPORT ---
FACILITY: [facility] PATIENT NAME: Hemalatha Oliva : 1960 MR: [id number] V: [id number] EXAM DATE: ORDERING PHYSICIAN: AVI AHMADI TECHNOLOGIST: Location: [facility] [place] Patient: Hemalatha Oliva : 1960 Visit/Account:[id number] Date of Sevice: 01/14/2019 KNEE LIMITED LEFT Indication: Postop Comparison: None available Findings: There are postsurgical changes from left TKA. Components are well seated and in neutral alignment. IMPRESSION: 1. Unremarkable postoperative left TKA Report Dictated By: Shoaib Naylor at 01/14/2019 1:00 PM Report E-Signed By: Shoaib Naylor at 01/14/2019 1:01 PM WSN:[email or web address]
--- NOTE | 2019-01-14 13:27 | OPERATIVE REPORT 1 ---
EVENT DATE: January 14, 2019 SURGEON: Cornelius Jenkins MD ANESTHESIOLOGIST: Luis Alfredo Lazaro MD ANESTHESIA: Left adductor canal block followed by general. We also utilized 50 cc of our standard Toradol/Ropivacaine cocktail. CERAMIC COATER: Roberto Sharp PA-C PREOPERATIVE DIAGNOSIS Left knee degenerative joint disease. POSTOPERATIVE DIAGNOSIS Left knee degenerative joint disease. PROCEDURE PERFORMED Left total knee arthroplasty. SPECIMENS None. COMPLICATIONS None. ESTIMATED BLOOD LOSS Less than 200 cc. IMPLANTS USED MicroPort medial pivot CS system with a 4 femur, 4 tibia, 12 mm CS insert and 8 x 35 symmetric patella. Femur cut 6 degrees valgus, 10 mm. Also utilized 2 packages of [employer] [place] Blue cement and ZipLine wound closure system. DESCRIPTION OF PROCEDURE The patient received appropriate preoperative antibiotics and was brought to the OR where Dr. Lazaro performed a left adductor canal block, followed by general. The left thigh tourniquet was placed but was not utilized. Left lower extremity was prepped and draped in the usual sterile fashion. A midline incision was made followed by medial parapatellar arthrotomy. We dissected subperiosteally along the level of the medial tibial plateau above the MCL insertion to the level of the semimembranosus. The fat pad was excised. We noted significant eburnation and erosion of bone and patella, and patella trochlea was hypertrophic with spurs and there was moderate changes in the medial and lateral compartments. The patella was released and we performed a lateral release. We were able to tressa the patella after removal of osteophytes. The knee was brought up into hyperflexion. ACL and PCL were released subperiosteal by Bovie. The remaining articular cartilage was removed from the distal femoral condyles with sagittal saw. Step-cut drill was utilized to broach the canal, placed our intramedullary guide and set the block up at 10 mm, 6 degrees valgus and made our cut. 3 degree external rotation guide was positioned referencing off the epicondyles, posterior condyles, and sizing by the anterior phalange and we noted a size 4. We then placed a 4-in-1 cutting block, Z-retractors to protect the soft tissue and made our four cuts. The tibia was brought anteriorly in the femur. Tibia was broached with set-cut drill, placed our intramedullary guide. We referenced 4 mm off the least involved lateral tibial plateau and after referencing for rotator, pinned the block into place and made our cut. We still worked under the posterior aspect of the articular cartilage. We dropped the guide 2 mm and made another 2 mm cut for a total of 6 mm and then we were satisfied. I then removed the stump of the ACL and PCL and medial lateral meniscus by Dalia. Osteophytes were removed by curved osteotome. The posterior capsule was elevated with the Cortes elevator. We then placed our tibial baseplate referencing from previous rotation, 12 mm insert and a #4 femur. We achieved full extension, full flexion and only limited by body habitus and she was stable to varus and valgus stress and had anterior drawer at 90 degrees was satisfactory. The knee was brought up into full extension. We went to the patella and we noted significant loss of bone. We performed a 3 cut so that the medial, superior and lateral margins were now 13 mm in depth but contralaterally. We had an area of deficit, but there was bone underneath. We placed our guide for 35 x 8 and drilled our peg holes and we noted that we had 3 peg holes of stability. The sclerotic bone was then drilled with the 1.5 mm drill bit, we placed our trial and cut for a trochlea chip. We placed this and again we had the aforementioned range of motion and stability and the patella tracked well. The patella, femur, tibia insert was removed. Appropriate retractors were placed and we set up our keel tower which was cut, reamed and punched. We removed the instrumentation, placed a bone plug in the distal femur. While we copiously irrigated by pulse lavage, we mixed 2 packages of [employer] [place] Blue cement. We then injected 10 cc of our cocktail in the posterior capsule. We placed the knee in appropriate position, cemented in the tibia, 12 mm CS insert, and our femur. Excess cement was removed and the knee brought in full extension with axial compression while we cemented the patella. We injected our cocktail into the quad mechanism and irrigating with warm saline. After 11 minutes the cement had cured. Again, the aforementioned range of motion and stability was noted. At 30 degrees we closed the arthrotomy with #2 Vicryl in [id number] suture fashion, followed by 2-0 Vicryl for the subcutaneous tissues and after placing the knee at 45 degrees and cleaned the wounds, we placed our ZipLine wound closure, followed by a compressive dressing. The patient was extubated and taken to recovery in stable. The hospitalist team will be consulted for medical management, anticoagulation and PT for rehab. ADRIAN
--- NOTE | 2019-01-14 15:19 | Hospitalist Consultation ---
History of Present Illness Requesting Physician Dr. Jenkins Reason for Consult Medical Management of Comorbidities Chief Complaint s/p knee replacement History of Present Illness She was admitted s/p knee replacement. It is reported the surgery went well and without complication. History Problems: (1) Sleep related hypoxia Status: Chronic (2) GERD (gastroesophageal reflux disease) Status: Chronic Home Meds Reported Medications Calcium Carbonate (CALCIUM) 500 Mg Tablet, 500 MG PO QDAY 01/07/19 Cetirizine Hcl (ZYRTEC) Unknown Strength Tablet, PO QDAY, TAB 10/26/16 Multivitamin (MULTI-VITAMIN DAILY) 1 Each Tablet, 1 EACH PO 01/28/16 Glucosamine Sulfate 2KCL (GLUCOSAMINE) 1,000 Mg Tablet, 1000 MG PO 01/28/16 Ranitidine Hcl (RANITIDINE HCL) 150 Mg Capsule, 300 MG PO DAILY, CAPSULE 08/22/14 Ca Cmb No.1/Vit D3/B-6/Fa/B12 (Vitamin D3 1,000 Unit Tablet) 1 Each Tablet, 1 EACH PO DAILY, 0 Refills 01/27/10 Discontinued Reported Medications Tramadol Hcl (TRAMADOL HCL) 50 Mg Tablet, 50-100 MG PO Q6H for PAIN, #20 TAB 08/29/18 Ketorolac Tromethamine (KETOROLAC TROMETHAMINE) 10 Mg Tab, 10 MG PO Q8H for PAIN, TAB 08/29/18 Discontinued Scripts Aspirin (ASPIRIN) 325 Mg Tablet, 325 MG PO QDAY, #30 TAB Prov:FAITH POZO Nuno STAFF [employer] OFFICER 08/29/18 Allergies: Coded Allergies: No Known Allergies (Verified Allergy, Mild, 06/29/09) Patient History: FH: Alzheimers disease FATHER FH: breast cancer MOTHER Hx Smoking: No Smoking Status: Never Smoker Caffeine Intake: Soda Caffeine/Cups Per Day: OCC Hx Alcohol Use: No Hx Substance Use Disorder: No Social Drug Use: Never Review of Systems All Systems Reviewed/Normal: Yes, Except as Noted Exam Vital Signs Vital Signs Date Time Temp Pulse Resp B/P (MAP) Pulse Ox O2 Delivery O2 Flow Rate FiO2 01/14/19 13:00 97.4 66 16 126/72 (90) 98 Nasal Cannula 1.0 General Appearance: Alert, Awake, No Acute Distress, Afebrile Neuro: No Gross deficits Cardiovascular: Regular Rate and Rhythm Respiratory: No Respiratory Distress, Clear to Auscultation GI: Abd Soft and Non-Tender Psych: Alert & Oriented X3, Appropriate Mood & Affect Assessment and Plan Problems: (1) S/P knee replacement Status: Acute Assessment & Plan: Followed by Dr. Jenkins. She will be placed on Aspirin for DVT prophylaxis. (2) GERD (gastroesophageal reflux disease) Status: Chronic Assessment & Plan: Continue chronic Ranitidine. (3) Sleep related hypoxia Status: Chronic Assessment & Plan: She is on chronic treatment with oxygen 2 Liters at night. She does not require CPAP. Venous Thromboembolism Antithrombotics Is Pt On Any Antithrombotics?: No Problem Qualifiers (1) S/P knee replacement: Laterality: left Qualified Codes: Z96.652 - Presence of left artificial knee joint FAITH POZO [employer]ER Jan 14, 2019 15:19
--- NOTE | 2019-01-14 16:10 | NUR ---
Physical Therapy Impression PT eval complete. Pt performed bed mobility with Min A, CGA to stand, and CGA to ambulate with RW to/from the bathroom. CPM fitted and running 0-40 deg. Recommend OP PT at [place]. Physical Therapy Goals 1. Mod I bed mobility. 2. Mod I transfers. 3. Mod I gait x 150' with RW. 4. 1 platform step with SBA. 5. I use of CPM. Patient's Goals
[2019-01-14] MEDS ORDERED: NS(*) 0.9% 250 ML BAG 250 ML ONE (16:45)
[2019-01-14] MEDS: ceFAZolin(*) 2GM/D5W 50ML 50 ML IVPB SCH (17:06)
[2019-01-14] MEDS: ACETAMINOPHEN 500 MG TAB PO SCH ×2 (17:19→23:35)
[2019-01-14] MEDS: IBUPROFEN 200 MG TAB PO SCH ×2 (17:19→23:36)
[2019-01-14] MEDS: RANITIDINE HCL 150 MG TAB PO SCH (20:57)
[2019-01-15] MEDS: ceFAZolin(*) 2GM/D5W 50ML 50 ML IVPB SCH ×2 (00:48→09:07)
[2019-01-15 04:53] VITALS: BP 106/58
[2019-01-15] MEDS: IBUPROFEN 200 MG TAB PO SCH ×2 (05:21→12:05)
[2019-01-15 07:00] VITALS: BP 101/61
[2019-01-15] MEDS: ACETAMINOPHEN 500 MG TAB PO SCH (08:11)
[2019-01-15] MEDS: RANITIDINE HCL 150 MG TAB PO SCH (08:11)
[2019-01-15] MEDS ORDERED: ASPI-764 PO (08:24)
[2019-01-15] MEDS ORDERED: ASPIRIN 325 MG ENTERIC COATED PO SCH (09:00)
--- NOTE | 2019-01-15 09:30 | NUR ---
Physical Therapy Impression Patient was SBA for transfers and SBA for bed mobility. Patient instructed in gait training with FWW SBA ~200 feet with assistance to push IV pole. Patient had good step length, sherrie and heel strike with very mild antalgic gait.Patient ascended and descended platform step with CGA and FWW and cuing for sequencing and technique. Patient performed 2 reps. Patient was left in room in bed with all needs met. Patient met all goals and will d/c to OP PT. Physical Therapy Goals 1. Mod I bed mobility. 2. Mod I transfers. 3. Mod I gait x 150' with RW. 4. 1 platform step with SBA. 5. I use of CPM. Patient's Goals
--- NOTE | 2019-01-15 09:49 | Hospitalist Progress Note ---
Subjective Progress Notes Subjective She was admitted s/p knee replacement. She had no acute events overnight. Patient Complains of: Cardiovascular: No: Chest Pain Respiratory: No: Shortness of Breath Physical Exam Vital Signs Date Time Temp Pulse Resp B/P (MAP) Pulse Ox O2 Delivery O2 Flow Rate FiO2 01/15/19 07:00 98.1 73 101/61 (74) 95 Nasal Cannula 1.0 01/15/19 04:53 14 Intake and Output 01/15/19 01:03 Intake Total 1795 ml Balance 1795 ml Intake Oral 720 ml IV Total 1075 ml # Voids 3 General Appearance: Alert, Awake, No Acute Distress, Afebrile Neuro: No Gross deficits Cardiovascular: Regular Rate and Rhythm Respiratory: No Respiratory Distress, Clear to Auscultation GI: Soft and Non-Tender Psych: Alert & Oriented X3, Appropriate Mood & Affect Assessment and Plan Problems: (1) S/P knee replacement Status: Acute Assessment & Plan: Followed by Dr. Jenkins. She will be placed on Aspirin for DVT prophylaxis. (2) GERD (gastroesophageal reflux disease) Status: Chronic Assessment & Plan: Continue chronic Ranitidine. (3) Sleep related hypoxia Status: Chronic Assessment & Plan: She is on chronic treatment with oxygen 2 Liters at night. She does not require CPAP. Exam Sepsis Risk: No Definite Risk Problem Qualifiers (1) S/P knee replacement: Laterality: left Qualified Codes: Z96.652 - Presence of left artificial knee joint FAITH POZO PROCUREMENT CONSULTANT Jan 15, 2019 09:49
[2019-01-15 11:24] VITALS: Ht 165.1 cm; Wt 101.7 kg
== END 2019-01-15 12:15 | disposition home or self-care (01) | DRG 470 ==
LOC: OR 07:48 → OBSVTOIN 13:00 → MED 13:00
PROVIDERS: ADMIT Orthopaedic Surgery; ATTEND Orthopaedic Surgery
PROC: 0SRD0J9 Replacement of Left Knee Joint with Synthetic Substitute, Cemented, Open Approach (ICD-10-PCS; principal; 2019-01-14 09:44)
DX: M17.12 Unilateral primary osteoarthritis, left knee (principal); K21.9 Gastro-esophageal reflux disease without esophagitis; G47.34 Idiopathic sleep related nonobstructive alveolar hypoventilation
CPT/HCPCS: 36415; 81001; 85610; 86850; 86900; 86901; 97161; J0690; J2250; J2795; J3010; J7060

== ENCOUNTER → 2019-02-01 | Outpatient (CLI) | payer OTHER ==
[2019-01-15 11:24] VITALS: BMI 37.3
[~2019-02-01] MED LIST changes: +ASPI-764 PO
--- NOTE | 2019-02-05 08:28 | RADIOLOGY IMAGING REPORT ---
FACILITY: [facility] PATIENT NAME: COURTNEY MORGAN : [id number] MR: [id number] V: [id number] EXAM DATE: [id number] ORDERING PHYSICIAN: OLAF MILLER TECHNOLOGIST: Charlene Marin PROCEDURE: MAMMOGRAM SCREENING LEFT UNILATERAL WITH CAD ASSISTED INTERPRETATION & 3D TOMOSYNTHESIS REASON FOR STUDY: Screening FAMILY HISTORY OF BREAST CANCER: Maternal Grandmother & self. BREAST PROCEDURES/TREATMENTS: Right mastectomy in 2009 followed by chemotherapy & radiation therapy. COMPARISON: Mammograms 01/31/18, 05/05/16, 01/28/15 VIEWS OBTAINED: Unilateral 2D & 3D full field Left CC & MLO projections. BREAST DENSITY: There are scattered areas of fibroglandular density throughout the Left breast. MAMMOGRAM FINDINGS: The parenchymal pattern throughout the Left breast has remained stable allowing for difference in mammographic technique & patient positioning. DIAGNOSTIC CATEGORY 1--NEGATIVE. RECOMMENDATIONS: ROUTINE MAMMOGRAM AND CLINICAL EVALUATION. IMPRESSION: BIRADS 1: Negative. Dictated by: Anna Pederson M.D. on 02/01/2019 at 11:38 Transcribed by: MIKE on 02/05/2019 at 7:41 Approved by: Anna Pederson M.D. on 02/05/2019 at 8:22 [facility]
== END ==
LOC: MAMO 04:24
PROVIDERS: ATTEND Internal Medicine Hematology
DX: Z12.31 Encounter for screening mammogram for malignant neoplasm of breast (principal)
CPT/HCPCS: 77063; 77067